=== PATIENT | male | born 1995 | race Caucasian/White ===

== ENCOUNTER 2019-02-24 16:30 | Emergency (ER) | payer OTHER ==
[2019-02-24 16:48] VITALS: TEMP 98; BMI 40.3
[2019-02-24 17:46] VITALS: BP 123/76; PULSE 65
--- NOTE | 2019-02-24 17:58 | PDOC ---
History of Present Illness - General Chief Complaint: Lightheaded Stated Complaint: DIZZINESS Time Seen by Provider: 02/24/19 17:17 History Source: Patient Exam Limitations: No Limitations - History of Present Illness Initial Comments: 02/24/19 17:23 23-year-old male presents to ED with complaints of intermittent dizziness for the past few months associated with change in appetite. Patient has no other complaints at this time. Patient states did have a head CT done in August when symptoms were present also but when they subsided he did not follow-up with his primary care physician. Patient denies change in weight, heat or cold intolerance, hair loss, increased dry skin or increased perspiration. Is this a multiple visit Asthma Patient?: No Timing/Duration: intermittent Severity: mild Associated Symptoms: reports: loss of appetite, other Past History - Travel Traveled outside of the country in the last 30 days: No Close contact w/someone who was outside of country & ill: No - Past Medical History Allergies/Adverse Reactions: Allergies Allergy/AdvReac Type Severity Reaction Status Date / Time No Known Allergies Allergy Verified 02/24/19 16:48 COPD: No - Psycho Social/Smoking Cessation Hx Smoking History: Never smoked Patient Lives Alone: No Lives with/in: parents Review of Systems - Review of Systems Able to Perform ROS?: No Is the patient limited [place] proficient: No Constitutional: Yes: Weakness HEENTM: No: Symptoms Reported Respiratory: No: Symptoms reported Cardiac (ROS): Yes: Lightheadedness. No: Chest Pain, Chest Tightness ABD/GI: Yes: Poor Appetite. No: Poor Fluid Intake : No: Symptoms Reported Musculoskeletal: No: Symptoms Reported Integumentary: No: Symptoms Reported Neurological: Yes: Dizziness Endocrine: No: Symptoms Reported *Physical Exam - Vital Signs Last Vital Signs Temp Pulse Resp BP Pulse Ox 98 F 65 18 123/76 99 02/24/19 16:45 02/24/19 17:44 02/24/19 16:45 02/24/19 17:44 02/24/19 16:45 - Physical Exam General Appearance: Yes: Nourished, Appropriately Dressed, Obese. No: Apparent Distress HEENT: positive: EOMI, SHANNEN, TMs Normal, Pharynx Normal. negative: Pale Conjunctivae Neck: positive: Normal Thyroid, Supple Respiratory/Chest: positive: Lungs Clear, Normal Breath Sounds. negative: Respiratory Distress, Accessory Muscle Use Gastrointestinal/Abdominal: positive: Soft. negative: Tenderness Extremity: positive: Normal Inspection Integumentary: positive: Normal Color, Warm, Moist Neurologic: positive: Normal Mood/Affect, Motor Strength 5/5 (Ambulatory) Heart Score/ECG Review - ECG Intrepretation Rhythm: Regular Rhythm (Normal sinus rhythm with a rate of 72. Intervals are regular. QTc 460 milliseconds.) ED Treatment Course - ADDITIONAL ORDERS Additional order review: Laboratory Results 02/24/19 17:41 POC Glucometer 110 02/24/19 17:41 POC Glucometer 110 Medical Decision Making - Medical Decision Making 02/24/19 17:07 Chief complaint: Intermittent dizziness with lack of appetite for the past few months. Patient had CT of the head done August 2019 which was negative for acute pathology. Patient did not follow-up with his PCP. Exam: Patient is obese but otherwise appears healthy. Plan: Orthostatics, BGM EKG ordered 02/24/19 17:57 BGM 110. Patient was not orthostatic and EKG was normal sinus rhythm. Will discharge home with recommendation to follow-up with his PCP for further work- up. Discharge - Discharge Information Problems reviewed: Yes Clinical Impression/Diagnosis: Dizziness Condition: Good Disposition: HOME - Follow up/Referral - Patient Discharge Instructions Patient Printed Discharge Instructions: DI for Dizziness-Nonvertigo, Healthy Diet for Adolescents (Ages 12-18) Additional Instructions: Eat small balanced meals throughout the day. Drink plenty of fluids follow-up with your primary care physician to have further work-up including blood work - Post Discharge Activity
--- NOTE | 2019-02-25 11:36 | EKG ---
Test Reason : Blood Pressure : / mmHG Vent. Rate : 072 BPM Atrial Rate : 072 BPM P-R Int : 154 ms QRS Dur : 100 ms QT Int : 380 ms P-R-T Axes : 014 073 026 degrees QTc Int : 416 ms NORMAL SINUS RHYTHM WITH SINUS ARRHYTHMIA NORMAL ECG NO PREVIOUS ECGS AVAILABLE Confirmed by HELENA GRADY, PAMELLA ([id number]) on 02/25/2019 11:35:59 AM Referred By: Confirmed By:PAMELLA MALIK MD
== END 2019-02-24 18:08 | disposition home or self-care (01) ==
LOC: JERFT 16:30
DX: R42 Dizziness and giddiness (principal); E66.9 Obesity, unspecified; Z68.41 Body mass index [BMI] 40.0-44.9, adult
CPT/HCPCS: 82962; 93005; 93010; 99282-25

== ENCOUNTER 2022-05-18 12:41 | Observation (INO) | payer OTHER ==
[2022-05-18 12:50] VITALS: BMI 41.1
[2022-05-18 15:14] LABS: BASO % 0.8 % (0-2.0); EOS % 6.1 % (0-4.5); HEMATOCRIT 47.8 % (35.4-49); HEMOGLOBIN 16.1 GM/dL (11.7-16.9); LYMPH % 29.8 % (8-40); MCH 27.6 pg (25.7-33.7); MCHC 33.8 g/dl (32.0-35.9); MEAN CELL VOLUME 81.5 fl (80-96); MEAN PLT VOLUME 7.5 fl (7.5-11.1); MONO % 6.6 % (3.8-10.2); NEUT % 56.7 % (42.8-82.8); PLATELET COUNT 258 10^3/uL (134-434); RBC 5.86 M/mm3 (4.00-5.60); RDW 12.8 % (11.9-15.9); WHITE BLOOD COUNT 7.8 K/mm3 (4.0-10.0)
[2022-05-18 15:21] LABS: INR 1.03 (0.83-1.09)
[2022-05-18 15:24] LABS: ACTIVATED PTT 37.2 SECONDS (25.2-36.5)
[2022-05-18 15:32] LABS: CALCIUM 9.5 mg/dL (8.5-10.1)
[2022-05-18 15:33] LABS: ALBUMIN 4.9 g/dl (3.4-5.0); BLOOD UREA NITROGEN 12.2 mg/dL (7-18)
[2022-05-18 15:36] LABS: CREATININE 0.8 mg/dL (0.55-1.3)
[2022-05-18 15:37] LABS: BILIRUBIN,TOTAL 0.9 mg/dL (0.2-1); TOT PROT 8.3 g/dl (6.4-8.2)
[2022-05-18] MEDS ORDERED: BUPIVACAINE HCL/PF 0.5% (5MG/ML) 10 ML VIAL ONE (19:04)
[2022-05-18] MEDS ORDERED: MIDAZOLAM HCL 2 MG/2 ML SINGLE DOSE VIAL ONE (19:22)
[2022-05-18] MEDS ORDERED: ACETAMINOPHEN INJECTION 100 ML IVPB ONE (19:33)
[2022-05-18] MEDS ORDERED: ceFAZolin SODIUM 1 GM VIAL IVPB ONE (19:49)
[2022-05-18] MEDS ORDERED: PROPOFOL 40 ML ONE (20:01)
[2022-05-18] MEDS ORDERED: SUCCINYLCHOLINE CHLORIDE 200 MG/10 ML SYRINGE ONE (20:01)
[2022-05-18] MEDS ORDERED: BACITRACIN ZINC 15 GM TUBE TOPICAL OINTMENT ONE (20:09)
[2022-05-18] MEDS ORDERED: BACITRACIN ZINC 15 GM TUBE TOPICAL OINTMENT TP ONE (20:20)
[2022-05-18 22:46] VITALS: RESP 18
[2022-05-18] MEDS ORDERED: ACETAMINOPHEN 325 MG TABLET (FP) PO PRN (23:30)
[2022-05-18] MEDS ORDERED: oxyCODONE HCL 5 MG TABLET PO PRN (23:30)
[2022-05-19] MEDS: CEPHALEXIN MONOHYDRATE 500 MG CAPSULE (UD) PO SCH ×3 (00:14→12:42)
[2022-05-19] MEDS ORDERED: ALBUTEROL SO4 HFA INHALER IH PRN (01:56)
[2022-05-19 09:15] LABS: HEMATOCRIT 45.3 % (35.4-49); HEMOGLOBIN 15.4 GM/dL (11.7-16.9); MCH 27.8 pg (25.7-33.7); MEAN CELL VOLUME 81.9 fl (80-96); MEAN PLT VOLUME 7.6 fl (7.5-11.1); PLATELET COUNT 241 10^3/uL (134-434); RBC 5.54 M/mm3 (4.00-5.60); WHITE BLOOD COUNT 8.6 K/mm3 (4.0-10.0)
[2022-05-19 12:19] VITALS: BP 110/65; PULSE 68; TEMP 98
== END 2022-05-19 13:42 | disposition home or self-care (01) ==
LOC: JER 12:41 → JERFT 12:41 → JERBED 19:10 → INTOOBSV 19:10 → J8W 21:45
PROVIDERS: ADMIT Internal Medicine; ATTEND Nurse Practitioner Family
PROC: 0TJB8ZZ Inspection of Bladder, Via Natural or Artificial Opening Endoscopic (ICD-10-PCS; 2022-05-18)
PROC: 3E03329 Introduction of Other Anti-infective into Peripheral Vein, Percutaneous Approach (ICD-10-PCS; 2022-05-18)
PROC: 3E033NZ Introduction of Analgesics, Hypnotics, Sedatives into Peripheral Vein, Percutaneous Approach (ICD-10-PCS; 2022-05-18)
PROC: 0VJS0ZZ Inspection of Penis, Open Approach (ICD-10-PCS; principal; 2022-05-18 19:30)
DX: R31.9 Hematuria, unspecified (principal); S39.840A Fracture of corpus cavernosum penis, initial encounter; W51.XXXA Accidental striking against or bumped into by another person, initial encounter; Y93.89 Activity, other specified; Y92.89 Other specified places as the place of occurrence of the external cause; E66.01 Morbid (severe) obesity due to excess calories; Z68.41 Body mass index [BMI] 40.0-44.9, adult; J45.909 Unspecified asthma, uncomplicated; K76.0 Fatty (change of) liver, not elsewhere classified; N28.89 Other specified disorders of kidney and ureter
CPT/HCPCS: 0241U-QW; 36415; 72195-TC; 80053; 85025; 85027; 85610; 85730; 86850; 86900; 86901; 94010; 94760; 96374; 96375; 99285-25; G0378

== ENCOUNTER 2022-05-25 15:04 | Emergency (ER) | payer OTHER ==
[2022-05-25 15:09] VITALS: PULSE 67; RESP 18; TEMP 97.9; BMI 40.3
[2022-05-25 15:10] VITALS: BP 119/66
== END 2022-05-25 18:35 | disposition home or self-care (01) ==
LOC: JER 15:04
DX: N48.89 Other specified disorders of penis (principal)
CPT/HCPCS: 99283-25

== ENCOUNTER 2022-10-16 04:47 | Day surgery (SDC) | payer OTHER ==
[2022-10-11 17:20] VITALS: BMI 42.7
[2022-10-16] MEDS ORDERED: MIDAZOLAM HCL 2 MG/2 ML SINGLE DOSE VIAL ONE ×2 (07:33→08:09)
[2022-10-16] MEDS ORDERED: SUCCINYLCHOLINE CHLORIDE 200 MG/10 ML SYRINGE ONE (07:35)
[2022-10-16] MEDS ORDERED: PROPOFOL 20 ML ONE (07:36)
[2022-10-16] MEDS ORDERED: ceFAZolin SODIUM 1 GM VIAL IVPB ONE (08:10)
[2022-10-16] MEDS ORDERED: oxyCODONE HCL 5 MG TABLET PO PRN (08:37)
[2022-10-16] MEDS ORDERED: LACTATED RINGERS SOLUTION 1,000 ML IV SCH (08:45)
[2022-10-16] MEDS ORDERED: DEXTROSE 5%-0.45% SALINE 1,000 ML IV SCH (08:45)
[2022-10-16 11:07] VITALS: RESP 18; TEMP 97.7
[2022-10-16 14:30] VITALS: BP 105/99; PULSE 74
== END 2022-10-16 13:45 | disposition home or self-care (01) ==
LOC: JASU-SURG 04:47
PROVIDERS: ATTEND Urology
PROC: 0VTTXZZ Resection of Prepuce, External Approach (ICD-10-PCS; principal; 2022-10-16 07:30)
DX: N47.1 Phimosis (principal)
CPT/HCPCS: 88304-TC; 94760

== ENCOUNTER 2023-04-29 18:04 | Emergency (ER) | payer OTHER ==
[2023-04-29 18:25] VITALS: BP 120/70; PULSE 88; RESP 18; TEMP 97.8; BMI 42.4
[2023-04-29] MEDS ORDERED: ACETAMINOPHEN 500 MG TABLET (FP) ONE (20:21)
[2023-04-29] MEDS ORDERED: LIDOCAINE 4% PATCH TP ONE (20:21)
[2023-04-29] MEDS: LIDOCAINE 4% PATCH TP ONE (20:23)
[2023-04-29] MEDS: ACETAMINOPHEN 500 MG TABLET (FP) PO ONE (20:23)
[2023-04-29 21:09] LABS: URINE APPEARANCE CLEAR; URINE BILIRUBIN NEGATIVE (NEGATIVE); URINE COLOR YELLOW; URINE GLUCOSE (UA) NEGATIVE (NEGATIVE); URINE KETONE TRACE (NEGATIVE); URINE LEUK ESTERASE NEGATIVE (NEGATIVE); URINE NITRITE NEGATIVE (NEGATIVE); URINE PROTEIN NEGATIVE (NEGATIVE)
[2023-04-30] MEDS ORDERED: LIDOCAINE PATCH REMOVAL MC SCH (08:00)
== END 2023-04-29 20:36 | disposition home or self-care (01) ==
LOC: JERFT 18:04
DX: M54.50 Low back pain, unspecified (principal); M62.830 Muscle spasm of back; X50.1XXA Overexertion from prolonged static or awkward postures, initial encounter
CPT/HCPCS: 81003; 87086; 99283-25